=== PATIENT | female | born 1955 | race Caucasian/White ===

== ENCOUNTER 2020-10-25 08:41 | Emergency (ER) | payer OTHER, SELFPAY ==
--- NOTE | ~2020-10-25 | XR_ITS ---
EXAMINATION: XR toe 5th LT min 2V INDICATION: Left fifth toe pain TECHNIQUE: Four views of the left fifth toe are obtained. COMPARISON: None available FINDINGS: There is fusion of the distal interphalangeal joint of the fifth toe. No fracture is identi fied. There is mild soft tissue swelling of the fifth toe. IMPRESSION: 1. No acute cardiopulmonary abnormality. Reviewed, dictated and finalized at location A.
--- NOTE | ~2020-10-25 | XR_ITS ---
EXAMINATION: XR shoulder RT min 2V INDICATION: Right shoulder pain TECHNIQUE: Five views of the left shoulder are submitted. COMPARISON: None FINDINGS: There is mild cranial subluxation of the humeral head with respect to the glenoid, likely r eflecting chronic rotator cuff injury. No fracture is identified. Suture anchors are present in the h umeral head. A lucency in the proximal shaft of the humerus may reflect the site of prior orthopedic hardware. There is thoracic levoscoliosis. Soft tissues are unremarkable. IMPRESSION: 1. No acute osseous abnormality. 2. Surgical changes of the shoulder. 3. Possible orthopedic hardware site in the proximal humeral shaft, correlate with surgical history. Reviewed, dictated and finalized at location A. IMPRESSION: 1. No acute osseous abnormality. 2. Surgical changes of the shoulder. 3. Possible orthopedic hardware site in the proximal humeral shaft, correlate w ith surgical history.
[2020-10-25 08:53] VITALS: BP 96/52; PULSE 54; RESP 16; TEMP 36.8; O2SAT 95
--- NOTE | 2020-10-25 08:55 | ED.GENADULT ---
HPI - General Adult General Chief complaint: Extremity Injury, Upper Stated complaint: back,toe and shoulder pain Time Seen by Provider: 10/25/20 08:55 Source: patient Mode of arrival: ambulatory Limitations: no limitations History of Present Illness HPI narrative: 65-year-old female patient presents to the [facility] with complaints of right shoulder pain and left toe pain. Patient states last night she dropped a canister of tea on her left pinky toe and thinks she might have broken it. Patient states that she has ryan taped it which has helped with the pain. Patient states that today when she was on the toilet she went to get up from the toilet today and almost fell and twisted hurting her right shoulder. Patient has history of surgeries to bilateral shoulders in the past and states she no longer has a rotator cuff in her right shoulder. Patient states she did take 10 mg of Vicodin this morning when the injury occurred but still rating her pain 8 out of 10. Related Data Home Medications Medication Instructions Recorded Confirmed alendronate 70 mg PO WEEKLY 10/25/20 10/25/20 alprazolam 1 mg PO TID PRN 10/25/20 10/25/20 hydrocodone-acetaminophen 1 tablet PO Q6H PRN 10/25/20 10/25/20 paroxetine HCl 20 mg PO DAILY 10/25/20 10/25/20 rosuvastatin 10 mg PO DAILY 10/25/20 10/25/20 trazodone 200 mg PO HS 10/25/20 10/25/20 triamterene-hydrochlorothiazid 0.5 tablet PO DAILY 10/25/20 10/25/20 Allergies Allergy/AdvReac Type Severity Reaction Status Date / Time No Known Allergies Allergy Verified 10/25/20 09:22 Review of Systems Review of Systems: CONSTITUTIONAL: Denies fever, chills, or sweats. EYES: Denies visual changes, redness, or discharge. ENT: Denies rhinorrhea, congestion, sore throat, or otalgia. CARDIOVASCULAR: Denies chest pain, palpitations, or edema. RESPIRATORY: Denies cough or dyspnea. GASTROINTESTINAL: Denies abdominal pain, nausea, vomiting, or diarrhea. GENITOURINARY: Denies dysuria or hematuria. SKIN: Denies rash or itching. MUSCULOSKELETAL: Denies back pain, joint pain, or myalgia. Positive right shoulder pain and positive left pinky toe pain NEUROLOGIC: Denies headache, numbness, or weakness. PSYCHIATRIC: Denies anxiety or depression. [facility] Surgical History Surgical History (Updated 10/25/20 @ 09:21 by RUPALI Nichole) H/O rotator cuff surgery Right shoulder History of left shoulder replacement Comments At the time of my signature I agree with nursing past medical history, surgical, social, and family history. There is no relevant family history pertinent to the presenting complaint. Exam Narrative: GENERAL: Well-appearing, well-nourished, and in no acute distress. HEAD: Normocephalic, atraumatic. EYES: PERRLA and EOMI. ENT: Nares clear, no rhinorrhea or epistaxis. Mucous membranes moist. NECK: Supple. No lymphadenopathy CHEST: Clear to auscultation. No respiratory distress. HEART: Regular rate and rhythm. No murmur heard. Normal peripheral pulses. ABDOMEN: Soft, nontender, nondistended, normal active bowel sounds. EXTREMITIES: The R shoulder is without obvious asymmetry or deformity when compared to the L shoulder. No surface trauma, ecchymosis, crepitus. No bony deformity or prominence of the humeral head No erythema, warmth, swelling. tenderness to palpation to, A to C joint, scapula. No tenderness to palpation of the bicipital groove or soft tissues. No tenderness to palpation of the muscles of the sterncleidomastoid, pectorals, biceps/triceps, deltoid, trapezius, rhomboid, latissimus dorsi, rotator cuff. pain and limitation with active or passive abduction/adduction, internal/external rotation, flexion/extension. Positive empty can and drop arm test (rotator cuff). No axillary tenderness or lymphadenopathy. Normal sensation over the deltoid and ability to flex arm at elbow indicates intact axillary nerve function. Distal motor and neurovascular status is intact. Patient able to bear weight
--- NOTE | 2020-10-25 10:24 | PC.NURSE ---
PT TAKEN TO RADIOLOGY IN WHEELCHAIR
== END 2020-10-25 10:10 | disposition home or self-care (01) ==
PROVIDERS: Emergency Provider Nurse Practitioner Family
DX: S90.122A Contusion of left lesser toe(s) without damage to nail, initial encounter (principal); M25.511 Pain in right shoulder; W20.8XXA Other cause of strike by thrown, projected or falling object, initial encounter; X50.9XXA Other and unspecified overexertion or strenuous movements or postures, initial encounter
CPT/HCPCS: 73030; 73660; 99214; G0463